=== PATIENT | male | born 1975 ===

== ENCOUNTER 2018-01-24 17:13 | Emergency (ER) | payer BC ==
[2018-01-24 17:40] VITALS: RESP 18; TEMP 99.4; O2SAT 97
--- NOTE | 2018-01-24 18:32 | C.PDOC ---
History Of Present Illness 42yo male w/o significant PMHx presents to ED for evaluation of bodyaches, low grade fever and malaise gradualy develoepd since yesterday. Otherwise, pt denies high fever, headache, dizziness, drooling, neck pain, chest pain, shortness of breath, abdominal pain, N/V/D, UTi sx, denies recent travel. He has no other medical complaints. Ambulate to Ed for evaluation, not in nay apparent distress. HPI: Influenza Time Seen by Provider: 01/24/18 18:17 Chief Complaint: Flu-like Symptoms Chief Complaint (Provider): Cold symptoms History Per: Patient Exam Limitations: no limitations Have you had recent travel within the past 21 days to any of the following countries: [place], [place], [place] or [place]?: No Onset/Duration Of Symptoms: Days (1) Symptoms include: fever, bodyaches, sore throat, cough Risk factors for flu complications: No: adult > 65 years Past Medical History Reviewed: Historical Data, Nursing Documentation, Vital Signs Vital Signs: Last Vital Signs Temp 99.4 F 01/24/18 17:39 Pulse 94 H 01/24/18 17:39 Resp 18 01/24/18 17:39 BP 124/82 01/24/18 17:39 Pulse Ox 97 01/24/18 17:39 - Medical History PMH: No Chronic Diseases Surgical History: No Surg Hx Family History: States: No Known Family Hx - Social History Hx Alcohol Use: No Hx Substance Use: No - Immunization History Hx Tetanus Toxoid Vaccination: No Hx Influenza Vaccination: No Hx Pneumococcal Vaccination: No Review Of Systems Except As Marked, All Systems Reviewed And Found Negative. Constitutional: Positive for: Fever, Malaise, Other (bodyaches). Negative for: Weakness ENT: Positive for: Nose Congestion Cardiovascular: Negative for: Chest Pain Respiratory: Positive for: Cough. Negative for: Shortness of Breath Gastrointestinal: Negative for: Abdominal Pain Physical Exam - Physical Exam Appears: Well, Non-toxic, No Acute Distress Skin: Normal Color, Warm, No Rash Head: Normacephalic Eye(s): bilateral: PERRL Ear(s): Bilateral: Normal Nose: No Flaring, Discharge (scant clear B/L) Oral Mucosa: Moist, No Drooling Tongue: Normal Appearing Throat: No Erythema, No Drooling Neck: Trachea Midline, No Supple Cardiovascular: Rhythm Regular, No Murmur, No JVD Respiratory: No Decreased Breath Sounds, No Accessory Muscle Use, No Rales, No Rhonchi, No Stridor, No Wheezing Gastrointestinal/Abdominal: Soft, No Tenderness, No Distention, No Guarding Back: No CVA Tenderness Extremity: Normal ROM, No Deformity, No Swelling Neurological/Psych: Oriented x3, Normal Speech, Normal Motor, Normal Sensation, Normal Reflexes - ECG O2 Sat by Pulse Oximetry: 97 (RA) Pulse Ox Interpretation: Normal - Progress ED Course And Treament: On re-evaluation, pt is afebrile, hemodynamicaly stable. Non-toxic. Tolerate PO well in ED. PulseOx 97% RA Neck: Supple, (-) meningeal sign ENT: exam c/w mild pharyngitis Lungs: CTA B/L, BS equal B/L. CVS: (+)S1S2, reg. Abd: benign, (-) guarding, (-) rebound back: (-) CVA tenderness Neuorlogicaly intact. Pt has clinical findings c/w Influenza-like illness Pt advised. ref. to f/u with PMD in 2-3 days for re-eval. return if any new changes. Disposition Counseled Patient/Family Regarding: Diagnosis, Need For Followup, Rx Given - Disposition Referrals: [facility] [Outside] Disposition: HOME/ ROUTINE Disposition Time: 18:29 Condition: STABLE Additional Instructions: Encourage fluids Take medication as prescribed Follow up with PMD in2 -3 days for re-evaluation. Return to ED if any worsening or new changes. Prescriptions: Ibuprofen [Motrin Tab] 600 mg PO Q6 #20 tab Oseltamivir Phosphate [Tamiflu] 75 mg PO BID #10 capsule Instructions: Flu, Adult (DC) Forms: [employer] (Romanian), Work Excuse - Clinical Impression Clinical Impression: Influenza-like illness - PA / DEVELOPMENT EDUCATOR / Resident Statement MD/DO has reviewed & agrees with the documentation as recorded. - Scribe Statement The provider has reviewed the documentation as recorded by the Scribe (Gerri Bruno) Provider Attestation: All medical record entries made by the Scribe were at my direction and personally dictated by me. I have reviewed the chart and agree that the record accurately reflects my personal performance of the history, physical exam, medical decision making, and the department course for this patient. I have also personally directed, reviewed, and agree with the discharge instructions and disposition.
[2018-01-24 18:49] VITALS: BP 134/75; PULSE 81
== END 2018-01-24 18:49 | disposition home or self-care (01) ==
LOC: C.ER 17:13
DX: J11.1 Influenza due to unidentified influenza virus with other respiratory manifestations (principal)